=== PATIENT | female | born 1965 | race Caucasian/White ===

== ENCOUNTER 2024-08-06 09:29 | Emergency (ER) | payer OTHER ==
[~2024-08-06] VITALS: Ht 165.1 cm; Wt 98.0 kg
[~2024-08-06 09:29] MED LIST: ESCI10 PO; HYDACE5 PO; NAPR500 PO; OXYACE5T PO
[2024-08-06 10:23] LABS: BASOPHILS ABSOLUTE AUTO 0.06 K/mm3 (0.00-0.23); BASOPHILS PERCENT AUTO 1 % (0-2); EOSINOPHILS ABSOLUTE AUTO 0.21 K/mm3 (0.00-0.68); EOSINOPHILS PERCENT AUTO 2 % (0-6); Hematocrit 39.5 % (33.0-51.0); Hemoglobin 12.9 g/dL (11.5-16.0); IMMATURE GRAN ABSOLUTE AUTO 0.01 K/mm3 (0.00-0.10); IMMATURE GRAN PERCENT AUTO 0 % (0-1); LYMPHOCYTES ABSOLUTE AUTO 2.32 K/mm3 (0.84-5.20); LYMPHOCYTES PERCENT AUTO 26 % (21-46); MONOCYTES ABSOLUTE AUTO 0.56 K/mm3 (0.16-1.47); MONOCYTES PERCENT AUTO 6 % (4-13); Mean Corpuscular HGB 31.2 pg (26.0-34.0); Mean Corpuscular HGB Conc 32.7 g/dL (31.5-36.5); Mean Corpuscular Volume 95 fL (80-100); Mean Platelet Volume 9.8 fL (9.1-12.4); NEUTROPHILS ABSOLUTE AUTO 5.75 K/mm3 (1.96-9.15); NEUTROPHILS PERCENT AUTO 65 % (41-73); Platelet Count 359 K/mm3 (150-400); RDW Coefficient Variation 13.7 % (11.7-14.2); RDW Standard Deviation 48.7 fL (35.1-46.3); Red Blood Cell Count 4.14 M/mm3 (3.80-5.20); White Blood Cell Count 8.91 K/mm3 (4.00-11.30)
[2024-08-06 10:36] LABS: Albumin, Blood 3.1 g/dL (3.4-5.0); Albumin/Globulin Ratio 0.9 (0.8-1.8); Bilirubin, Total 0.3 mg/dL (0.1-1.0); Bun/Creatinine Ratio 22.7 (12.0-20.0); Calcium, Blood 8.4 mg/dL (8.5-10.1); Creatinine, Blood 0.7 mg/dL (0.40-1.00); Globulin, Blood 3.4 g/dL (2.2-4.0); Total Protein, Blood 6.5 g/dL (6.4-8.2)
== END 2024-08-06 12:56 | disposition home or self-care (01) ==
LOC: ER 09:29
PROVIDERS: Physician Assistant
DX: R07.2 Precordial pain (principal); Z88.5 Allergy status to narcotic agent
CPT/HCPCS: 71046; 80053; 84484; 85025; 93005; 93010; 99285-25

== ENCOUNTER 2024-09-15 08:06 | Day surgery (SDC) | payer OTHER ==
[~2024-09-15] VITALS: Ht 167.6 cm; Wt 101.0 kg
[2024-09-15] VITALS (9 sets, daily range): BP systolic 120–141; BP diastolic 69–88
[~2024-09-15 08:06] MED LIST changes: +Aspir 8181 MG PO; +BUPR150ER PO; +Lipitor20 MG PO; +NARATRIPTAN HC2.5 MG PO; +NITR.4SL SL; +TRAZ50 PO; +ZEBUTAL 50-3251 EAC1
[2024-09-15] MEDS ORDERED: METO25ER PO (08:30)
[2024-09-15] MEDS ORDERED: NS 250 ML IV ONE (08:38)
[2024-09-15] MEDS ORDERED: Verapamil HCL 2.5 MG/ML 2ML Injection ONE (08:38)
[2024-09-15] MEDS ORDERED: Heparin Sodium 1000 Units/ML 10ML MDV ONE (08:38)
[2024-09-15] MEDS ORDERED: NS 1,000 ML IV ONE ×2 (08:38→08:55)
[2024-09-15] MEDS ORDERED: Nitroglycerin 2 MG/20 ML BTL ONE (08:39)
[2024-09-15] MEDS ORDERED: FentaNYL Citrate 50 MCG/ML 2 ML Injection ONE (09:42)
[2024-09-15] MEDS ORDERED: Midazolam HCl 1MG / ML 2ML Vial ONE ×2 (09:42→10:00)
[2024-09-15] MEDS ORDERED: DILT120 PO (11:23)
--- NOTE | 2024-09-15 11:53 | NUR ---
PT TR BAND FULLY DEFLATED. NO BLEEDING NOTED. VSS.NADN. PRESCRIPTION CALLED TO [facility] FOR CARDIZEM CD 120MG PO DAILY # 30 WITH 6 REFILLS.
--- NOTE | 2024-09-15 12:08 | NUR ---
PT VERBALIZES UNSERSTANDING WRITTEN AND VERBAL INSTRUCTIONS. TR BAND REMOVED. NO BLEEDING OR HEMATOMA NOTED. CLOTH DOT APPLIED WITH SPLINT. PT TO RESTROOM ANBD BACK WITHOUT DIFF. PT DRESSES SELF WITHOUT DIFF. PT DC TO HOME VIA W/C
== END 2024-09-15 13:12 | disposition home or self-care (01) ==
LOC: MHTC 08:06
DX: I20.9 Angina pectoris, unspecified (principal); R94.39 Abnormal result of other cardiovascular function study; R00.2 Palpitations; R06.02 Shortness of breath; F32.9 Major depressive disorder, single episode, unspecified; G43.909 Migraine, unspecified, not intractable, without status migrainosus; Z79.899 Other long term (current) drug therapy; Z88.5 Allergy status to narcotic agent; Z91.010 Allergy to peanuts
CPT/HCPCS: 76937; 93454; 99152; C1769; C1887; C1894; J1644; J2250; J3010; J7030; J7050; Q9967

== ENCOUNTER 2024-12-11 09:43 | Emergency (ER) | payer OTHER ==
[~2024-12-11] VITALS: Ht 170.2 cm; Wt 95.2 kg
[~2024-12-11 09:43] MED LIST changes: +DILT120 PO; +METO25ER PO
[2024-12-11] MEDS ORDERED: Ketorolac Tromethamine 15mg Vial IM ONE (10:50)
[2024-12-11] MEDS ORDERED: OxyCODONE 5 mg/Acetamin 325 mg TABLET PO ONE (10:50)
[2024-12-11] MEDS ORDERED: Percocet 5-3251 EACH PO (13:35)
== END 2024-12-11 14:14 | disposition home or self-care (01) ==
LOC: ER 09:43
DX: M25.561 Pain in right knee (principal); G43.909 Migraine, unspecified, not intractable, without status migrainosus; Z79.82 Long term (current) use of aspirin; Z88.5 Allergy status to narcotic agent
CPT/HCPCS: 73562-RT; 96372; 99283-25; A9270; J1885

== ENCOUNTER 2025-08-22 03:18 | Inpatient (IN) | payer OTHER ==
[~2025-08-22] VITALS: Ht 167.6 cm; Wt 101.7 kg
[~2025-08-22 03:18] MED LIST changes: +Percocet 5-3251 EACH PO
[2025-08-22] MEDS ORDERED: BUTALB-ACETAMI1 EAC5 PO ×2 (03:41→13:01)
[2025-08-22] MEDS ORDERED: METOPROLOL SUCC25 MG PO (03:42)
[2025-08-22] MEDS ORDERED: Ondansetron HCl 2 MG / ML 2ML Vial IV PRN ×2 (03:45→08:25)
[2025-08-22 03:53] LABS: BASOPHILS ABSOLUTE AUTO 0.08 K/mm3 (0.00-0.23); BASOPHILS PERCENT AUTO 1 % (0-2); EOSINOPHILS ABSOLUTE AUTO 0.20 K/mm3 (0.00-0.68); EOSINOPHILS PERCENT AUTO 1 % (0-6); Hematocrit 38.3 % (33.0-51.0); Hemoglobin 12.4 g/dL (11.5-16.0); IMMATURE GRAN ABSOLUTE AUTO 0.06 K/mm3 (0.00-0.10); IMMATURE GRAN PERCENT AUTO 0 % (0-1); LYMPHOCYTES ABSOLUTE AUTO 1.80 K/mm3 (0.84-5.20); LYMPHOCYTES PERCENT AUTO 12 % (21-46); MONOCYTES ABSOLUTE AUTO 0.70 K/mm3 (0.16-1.47); MONOCYTES PERCENT AUTO 5 % (4-13); Mean Corpuscular HGB Conc 32.4 g/dL (31.5-36.5); Mean Corpuscular Volume 98 fL (80-100); NEUTROPHILS ABSOLUTE AUTO 12.13 K/mm3 (1.96-9.15); NEUTROPHILS PERCENT AUTO 81 % (41-73); NRBC ABSOLUTE 0.00 K/mm3 (0.00-0.02); NRBC Auto 0.0 /100 WBC (0.0-0.2); Platelet Count 332 K/mm3 (150-400); RDW Coefficient Variation 13.7 % (11.7-14.2); RDW Standard Deviation 49.3 fL (35.1-46.3)
[2025-08-22 04:12] LABS: Alanine Aminotransfer (ALT/SGP 35.0 U/L (12-78); Albumin, Blood 3.3 g/dL (3.4-5.0); Albumin/Globulin Ratio 1.0 (0.8-1.8); Anion Gap 9.0 mmol/L (3-11); Aspartate Aminotrans (AST/SGOT 37.0 U/L (12-37); Bilirubin, Total 0.5 mg/dL (0.1-1.0); Blood Urea Nitrogen 14.0 mg/dL (8-24); CO2, Blood 25.0 mmol/L (21-32); Calcium, Blood 8.7 mg/dL (8.5-10.1); Chloride, Blood 110.0 mmol/L (98-108); Creatinine, Blood 0.7 mg/dL (0.40-1.00); Globulin, Blood 3.3 g/dL (2.2-4.0); Glucose, Blood 117.0 mg/dL (70-99); Potassium, Blood 3.6 mmol/L (3.5-5.5); Sodium, Blood 140.0 mmol/L (136-145); Total Protein, Blood 6.6 g/dL (6.4-8.2)
[2025-08-22] MEDS ORDERED: Metoclopramide HCl 5MG / ML 2ML Vial IV ONE (04:20)
[2025-08-22] MEDS ORDERED: FentaNYL Citrate 50 MCG/ML 2 ML Injection IV ONE (04:20)
[2025-08-22 05:21] LABS: Source, Urine Clean Catch
[2025-08-22 05:27] LABS: Bilirubin, Urine Neg (Neg); Color, Urine Yellow (P-Yellow); Glucose Qualitative, Urine Neg (Neg); Ketones, Urine Neg (Neg); Leukocyte Esterase, Urine 2+ (Neg); Protein, Urine 1+ (Neg); Specific Gravity, Urine 1.025 (1.003-1.022); Urobilinogen, Urine NORM (Normal)
[2025-08-22 05:49] LABS: Red Blood Cells, Urine 0-2 /hpf (0-2)
[2025-08-22] MEDS ORDERED: ONDA4ODT MM (06:20)
[2025-08-22] MEDS ORDERED: Morphine Sulfate 4 MG/1 ML Injection IV ONE (06:20)
[2025-08-22] MEDS ORDERED: OXYACE7.5T PO (06:20)
[2025-08-22] MEDS ORDERED: Ondansetron HCl 2 MG / ML 2ML Vial IV ONE (07:15)
[2025-08-22] MEDS ORDERED: HYDROmorphone HCl/Pf 1MG SYR IV PRN ×2 (07:40→08:30)
[2025-08-22] MEDS ORDERED: FLU VACC TS2025-26(6MOS UP)/PF 45 MCG/0.5 ML SYRINGE IM SCH (08:25)
[2025-08-22 08:38] LABS: CHOL/HDL RATIO 1.7; Cholesterol 137 mg/dL (50-200); HDL Cholesterol 79 mg/dL (>39); LDL/HDL RATIO 0.5; Low Density Lipoprotein Chol 39 mg/dL (0-110); Triglycerides 93 mg/dL (30-160); Very Low Density Lipoprot Chol 18 mg/dL (6-32)
[2025-08-22] MEDS ORDERED: Enoxaparin 40 MG/0.4 ML SYR SC SCH (09:00)
[2025-08-22 11:06] VITALS: BP 118/67
--- NOTE | 2025-08-22 11:38 | NUR ---
The patient is lying in bed and alert. Her spouse, Beau is bedside. She tells me about the events that led to her admission to the hospital and the pain levels which are finally managed (several pain medications had been tried up to this point). Beau explains about the two bucks that he and their dtr shot yesterday, how they lean on their nicole for strength and peace and about the many irons that his has in the fire. I provided therapeutic listening and prayer. They both responded well and showed signs of reduced stress.
[2025-08-22] MEDS ORDERED: CefTRIAXone Sodium 1,000 MG in NS 100 ML IV SCH (13:00)
[2025-08-22] MEDS ORDERED: NS 250 ML IV PRN (13:45)
[2025-08-22 16:11] VITALS: BP 122/59
--- NOTE | 2025-08-22 16:14 | NUR ---
ADMIT NOTE PT A&OX4. PT ADMITTED DUE TO PANCREATITIS. PT ON TELE. PT HAS LR RUNNING AT 100ML/HR. PT REPORTS LOOSE STOOL YESTERDAY. REPORTED LOOSE STOOL TO DR. CARVAJAL. PT ARRIVED ON FLOOR AT 1040. PT SBA IN ROOM DUE TO LINES. PT STEADY ON FEET. PT REPORTS NO CHEST PAIN/SOB. PT REPORTS ABD PAIN, PT USES HEATING PAD FOR RELIEF AND MEDICATED PER EMAR. NIX CONSULTED, CALLED BY PROVIDER. PT ORIENTED TO UNIT/FALL PRECAUTIONS, CALL LIGHT. HOME MED IN DRAWER. CLARIFIED WITH DR. CARVAJAL IF SHE WANTS PT TO BE Q6 BLOOD SUGARS, WEI VALDEZ REPORTED "NOT NEEDED." REPORTED URINALYSIS TO DR. CARVAJAL, DR. CARVAJAL ORDERED ANTIBIOTIC. 2ND RN SKIN CHECK VERIFIED WITH LIZZETTE CHILDRESS. MED REC RECONSILED, REPORTED TO DOC. PT REPORTS TAKING MED FOR MIGRAINES, REPORTED TO DR. CARVAJAL ONSET OF HEADACHE. VSS. PT IN BED, BED IN LOWEST POSITION, CALL LIGHT IN REACH.
--- NOTE | 2025-08-22 19:34 | NUR ---
SHIFT SUMMARY PT A&OX4. PT ADMITTED DUE TO PANCREATITIS. PT REPORTS NO CHEST PAIN/SOB. DR. NELSON ROUNDED ON PT. PER NIX "PT WILL HAVE EGD TOMORROW, CLEAR LIQUIDS TILL 0700 ON 08/23." PT REPORTS ABD PAIN AND BLOUNT. PT HAS HX OF MIGRAINES. PT REPORTS NAUSEA. ZOFRAN GIVEN PER ORDER. PT ON TELE, NO TELE REPORTS. PT SBA DUE TO LINES. NO ACUTE CHANGES DURING SHIFT. (SEE ADMIT NOTE FOR MORE DETAILS) PT IN BED, BED IN LOWEST POSITION, CALL LIGHT IN REACH. VSS.
[2025-08-22 19:39] VITALS: BP 115/63
[2025-08-22 23:19] VITALS: BP 128/67
[2025-08-23] VITALS (19 sets, daily range): BP systolic 106–148; BP diastolic 48–96
--- NOTE | 2025-08-23 07:53 | NUR ---
Shift Summary AOx4. Pleasant. Cooperative. Ad partha. Medicated x 1 with one tab of fioricet for migraine, good effect provided. Patient slept through the night. LUQ slightly tender, but much improved. NPO since midnight except clear liquids which was cut off at 0700 this morning. Plan for EGD today. LR @ 100 continuous.
[2025-08-23 09:14] LABS: BASOPHILS ABSOLUTE AUTO 0.07 K/mm3 (0.00-0.23); BASOPHILS PERCENT AUTO 1 % (0-2); EOSINOPHILS ABSOLUTE AUTO 0.23 K/mm3 (0.00-0.68); EOSINOPHILS PERCENT AUTO 4 % (0-6); Hematocrit 33.0 % (33.0-51.0); Hemoglobin 10.9 g/dL (11.5-16.0); IMMATURE GRAN ABSOLUTE AUTO 0.01 K/mm3 (0.00-0.10); IMMATURE GRAN PERCENT AUTO 0 % (0-1); LYMPHOCYTES ABSOLUTE AUTO 1.80 K/mm3 (0.84-5.20); LYMPHOCYTES PERCENT AUTO 27 % (21-46); MONOCYTES ABSOLUTE AUTO 0.48 K/mm3 (0.16-1.47); MONOCYTES PERCENT AUTO 7 % (4-13); Mean Corpuscular HGB Conc 33.0 g/dL (31.5-36.5); Mean Corpuscular Volume 96 fL (80-100); NEUTROPHILS ABSOLUTE AUTO 3.99 K/mm3 (1.96-9.15); NEUTROPHILS PERCENT AUTO 61 % (41-73); NRBC ABSOLUTE 0.00 K/mm3 (0.00-0.02); NRBC Auto 0.0 /100 WBC (0.0-0.2); Platelet Count 279 K/mm3 (150-400); RDW Coefficient Variation 13.9 % (11.7-14.2); RDW Standard Deviation 48.8 fL (35.1-46.3)
[2025-08-23 09:45] LABS: Alanine Aminotransfer (ALT/SGP 52.0 U/L (12-78); Albumin, Blood 2.8 g/dL (3.4-5.0); Albumin/Globulin Ratio 0.9 (0.8-1.8); Anion Gap 7.0 mmol/L (3-11); Aspartate Aminotrans (AST/SGOT 40.0 U/L (12-37); Bilirubin, Total 0.4 mg/dL (0.1-1.0); Blood Urea Nitrogen 8.0 mg/dL (8-24); CO2, Blood 28.0 mmol/L (21-32); Calcium, Blood 8.4 mg/dL (8.5-10.1); Chloride, Blood 108.0 mmol/L (98-108); Creatinine, Blood 0.7 mg/dL (0.40-1.00); Globulin, Blood 3.0 g/dL (2.2-4.0); Glucose, Blood 91.0 mg/dL (70-99); Potassium, Blood 3.4 mmol/L (3.5-5.5); Sodium, Blood 140.0 mmol/L (136-145); Total Protein, Blood 5.8 g/dL (6.4-8.2)
[2025-08-23] MEDS ORDERED: Potassium Chl 20MEQ/Water100ML 100 ML IV STA (10:25)
--- NOTE | 2025-08-23 11:05 | NUR ---
NOTE PT POTASSIUM 3.4. ORDERED IV POTASSIUM. PT HAS LR CONT RUNNING AT 100ML/HR. PHARMACY ADJUSTED RATE FOR POTASSIUM AND REPORTED THEY ARE COMPATIBLE. PT NPO, DAY SURG REPORTED PT GOING FOR EGD AT 1230.
--- NOTE | 2025-08-23 11:30 | NUR ---
NOTE PT REPORTS LITTLE CHEST PAIN, MAY BE DUE TO STIFF NECK AND BLOUNT. THIS RN REPORTED TO DR. CARVAJAL, DR. CARVAJAL REPORTED "MAY BE DUE TO ACID REFLUX RELATED TO PANCREATITIS." NO NEW ORDERS. PT MEDICATED FOR NAUSEA AND BLOUNT.
--- NOTE | 2025-08-23 11:35 | NUR ---
The patient is sitting up in bed and alert. She tells me about her upcoming procedure and her gratitude for having her pain managed. She then talks about her spiritual journey, her growing nicole and her sources of gaining Biblical knowledge and support. I reinforced helpful attitudes and practices, normalized her experience and provided therapeutic listening and prayer. The patient responded well and showed signs of a elevated mood. I will continue to remain available to the patient and family.
--- NOTE | 2025-08-23 12:10 | NUR ---
History, Chart, Medications and Allergies reviewed before start of procedure. Lungs clear T/O to Auscultation. Patient confirms NPO status and agrees with scheduled surgery. Pre-Op teaching done. Pt verbalizes understanding. Patient States Post-Procedure ride home has been arranged.
--- NOTE | 2025-08-23 12:45 | NUR ---
08/23/25 1245 Joi Castillo CONFIRMED AND REVIEWED H&P, MEDCICATIONS, ALLERGIES, MEDICAL HISTORY, RESPIRATORY HISTORY, VITAL SIGNS, 3-LEAD EKG, CONSENTS, AND PHYSICIAN ORDERS. PATIENT CONFIRMS NPO STATUS AND AGREES WITH SCHEDULED PROCEDURE. MONITOR INTACT WITH CONTINUOUS PULSE OXIMETRY, CAPNOGRAPHY, 3-LEAD EKG, INTERMITTENT BP. SUPPLEMENTAL O2 TO BE TITRATED THROUGHOUT PROCEDURE TO MAINTAIN O2 SATURATION ABOVE 90%. PATIENT DETERMINED TO BE ASA APPROPRIATE FOR PROPOFOL SEDATION PRIOR TO START OF PROCEDURE BY DR. NELSON. MALLAMPATI CLASS 1 AIRWAY: COMPLETE VISULATIZATION OF THE SOFT PALATE. PATIENT REMOVED FROM CENTRAL TELEMETRY MONITORING, WILL PLACE BACK ON WHEN TRANSFERING BACK TO MEDICAL FLOOR.
--- NOTE | 2025-08-23 13:22 | NUR ---
NOTE PT BACK IN ROOM. ALERT. POST OP VITALS STARTED. PT ON REGULAR DIET, ANTIBIOTIC STARTED. PT IN BED, BED IN LOWEST POSITION, CALL LIGHT IN REACH. PT REPORTS NO CHEST PAIN OR PAIN. NO SOB.
--- NOTE | 2025-08-23 18:36 | NUR ---
SHIFT SUMMARY PT A&OX4. PT ADMITTED DUE TO PANCREATITIS. PT REPORTS NO CHEST PAIN/SOB/GEN PAIN. PT REPORTS BLOUNT UNDER CONTROL. PT HAD EDG COMPLETE. PT HAD POTASSIUM REPLACEMENT THROUGH IV TODAY. DR. NELSON REPORTED "LETS SEE HOW PT TOLERATES REG DIET." DR. NELSON PUT IN ORDERS FOR NPO EXCEPT MEDS AND SIPS OF WATER. VSS. PT ON TELE, NO TELE REPORTS. PT REPORTS "ATE FRUIT BUT TUMMY WAS GRUMBLY." PT REPORTS NO EMESIS, NAUSEA OK. CONT LR D/C. PT SBA DUE TO LINES. PT IN BED, BED IN LOWEST POSITION, CALL LIGHT IN REACH.
[2025-08-24] VITALS (17 sets, daily range): BP systolic 100–137; BP diastolic 57–90
--- NOTE | 2025-08-24 03:19 | NUR ---
SHIFT SUMMARY PATIENT HAS BEEN ALERT AND ORIENTED X4, COOPERTIVE AND PLESANT. PATIENT AMBULATED WITH FAMILY MEMBER AT THE START OF THE SHIFT. AT START OF SHIFT PATIENT HAD ATE CRACKERS, A FEW BITES OF PRADIP JIMENES, HAD CRANBERRY JUICE AND TOLERATED IT WELL. MADE NPO AT MIDNIGHT. HAS BEEN INDEPENDENT IN THE ROOM, NO POINTS OF DISTRESS, CALL LIGHT WITHIN REACH, BED RAILS UP X2, BED AT LOWEST POSITION,
[2025-08-24 04:55] LABS: BASOPHILS ABSOLUTE AUTO 0.08 K/mm3 (0.00-0.23); BASOPHILS PERCENT AUTO 1 % (0-2); EOSINOPHILS ABSOLUTE AUTO 0.29 K/mm3 (0.00-0.68); EOSINOPHILS PERCENT AUTO 3 % (0-6); Hematocrit 32.0 % (33.0-51.0); Hemoglobin 10.7 g/dL (11.5-16.0); IMMATURE GRAN ABSOLUTE AUTO 0.02 K/mm3 (0.00-0.10); IMMATURE GRAN PERCENT AUTO 0 % (0-1); LYMPHOCYTES ABSOLUTE AUTO 2.80 K/mm3 (0.84-5.20); LYMPHOCYTES PERCENT AUTO 33 % (21-46); MONOCYTES ABSOLUTE AUTO 0.64 K/mm3 (0.16-1.47); MONOCYTES PERCENT AUTO 8 % (4-13); Mean Corpuscular HGB Conc 33.4 g/dL (31.5-36.5); Mean Corpuscular Volume 96 fL (80-100); NEUTROPHILS ABSOLUTE AUTO 4.58 K/mm3 (1.96-9.15); NEUTROPHILS PERCENT AUTO 55 % (41-73); NRBC ABSOLUTE 0.00 K/mm3 (0.00-0.02); NRBC Auto 0.0 /100 WBC (0.0-0.2); Platelet Count 275 K/mm3 (150-400); RDW Coefficient Variation 14.0 % (11.7-14.2); RDW Standard Deviation 49.1 fL (35.1-46.3)
[2025-08-24 05:23] LABS: Anion Gap 7.0 mmol/L (3-11); Blood Urea Nitrogen 6.0 mg/dL (8-24); CO2, Blood 28.0 mmol/L (21-32); Calcium, Blood 8.3 mg/dL (8.5-10.1); Chloride, Blood 111.0 mmol/L (98-108); Creatinine, Blood 0.61 mg/dL (0.40-1.00); Glucose, Blood 92.0 mg/dL (70-99); Potassium, Blood 3.5 mmol/L (3.5-5.5); Sodium, Blood 142.0 mmol/L (136-145)
[2025-08-24] MEDS ORDERED: Rocuronium Bromide 10 MG/ML 5ML Injection IV ONE (11:09)
[2025-08-24] MEDS ORDERED: Midazolam HCl 1MG / ML 2ML Vial ONE (11:10)
[2025-08-24] MEDS ORDERED: FentaNYL Citrate 50 MCG/ML 2 ML Injection ONE (11:10)
[2025-08-24] MEDS ORDERED: FentaNYL Citrate 50 MCG/ML 2 ML Injection IV PRN ×2 (11:20→11:25)
[2025-08-24] MEDS ORDERED: HYDROmorphone HCl/Pf 1MG SYR IV PRN ×2 (11:25)
[2025-08-24] MEDS ORDERED: Labetalol HCL 5 MG/ML 4ML Injection (Single Dose) IV PRN (11:25)
[2025-08-24] MEDS ORDERED: Ondansetron HCl 2 MG / ML 2ML Vial IV PRN (11:25)
[2025-08-24] MEDS ORDERED: Bupivacaine 0.5% HCl 5 MG/ML 30MLVIAL ONE (11:41)
[2025-08-24] MEDS ORDERED: CefTRIAXone 1000 MG Vial ONE (11:49)
--- NOTE | 2025-08-24 12:00 | NUR ---
PT LEFT FLOOR FOR HER PROCEDURE- PT WENT FOR EXPLORATORY LAPAROTOMY. THEY PULLED A DOSE OF ROCEPHIN AND WILL ADMINISTER DURRING SURGERY, SHE WILL NOT NEED THE 1300 DOSE. DAY SURGERY BROUGHT HER PHONE BACK TO THE ROOM. TELE NOTIFIED THE PT IS IN DAY SURGERY.
[2025-08-24] MEDS ORDERED: Ondansetron HCl 2 MG / ML 2ML Vial ONE ×2 (12:07→13:45)
[2025-08-24] MEDS ORDERED: Dexamethasone Sod Phos 10 MG/ML 1ML VIAL ONE (12:07)
[2025-08-24] MEDS ORDERED: Ketorolac Tromethamine 30mg Vial ONE (12:08)
[2025-08-24] MEDS ORDERED: Sugammadex Sodium 200 MG/2ML SDV (100 MG/ML) ONE (12:31)
[2025-08-24] MEDS ORDERED: Metoclopramide HCl 5MG / ML 2ML Vial IV PRN (14:45)
--- NOTE | 2025-08-24 16:16 | NUR ---
SHIFT SUMMARY- PT WENT FOR EXPLORATORY LAPAROTOMY WITH DR NELSON. PER DR NELSON THE PT SHOULD STAY AND BE SURE SHE IS ABLE TO TOLLERATE PO NUTRITION, THEN SHE SHOULD FOLLOW UP POST HOSPITAL STAY WITH A BARIACTRIC SURGEON. PT HAD SOME BRADYCARDIA UPON RETURNING FROM SURGERY EKG COMPLETED. PT MEDICATED WITH IV DILAUDID FOR PAIN AND THAT SEEMED TO HELP HER PAIN AND HER HR INCREASED A BIT. ONCE PT WAS MORE AWAKE SHE TOLD THIS RN WHEN SHE IS IN PAIN HER HR GETS LOWER. PT TAKING IN PO JELLO, SHE SAYS SE IS READY FOR THE PUDDING, ASKED HER TO WAIT A FEW MINUTES TO BE SURE THE JELLO DOES NOT MAKE HER NAUSEOUS. WILL ADVANCE DIET TOLLERATED. PT IN BED, CALL LIGHT IN REACH, NO CURRENT S&S OF DISTRESS NOTED. WILL CTM AND PASS ON IN REPORT TO NIGHT RN. PLAN TO DC HOME TOMORROW IF ALL GOES PLANNED.
--- NOTE | 2025-08-24 17:00 | NUR ---
Several spiritual care visits this day. Patient has been tearful and anxious and appreciates prayer and conversations centered around her nicole (which was gladly supplied. She responded well and showed signs of reduced stress and increased peace.
[2025-08-25 03:34] VITALS: BP 94/56
[2025-08-25 05:15] LABS: BASOPHILS ABSOLUTE AUTO 0.04 K/mm3 (0.00-0.23); BASOPHILS PERCENT AUTO 0 % (0-2); EOSINOPHILS ABSOLUTE AUTO 0.13 K/mm3 (0.00-0.68); EOSINOPHILS PERCENT AUTO 1 % (0-6); Hematocrit 32.0 % (33.0-51.0); Hemoglobin 10.4 g/dL (11.5-16.0); IMMATURE GRAN ABSOLUTE AUTO 0.01 K/mm3 (0.00-0.10); IMMATURE GRAN PERCENT AUTO 0 % (0-1); LYMPHOCYTES ABSOLUTE AUTO 2.83 K/mm3 (0.84-5.20); LYMPHOCYTES PERCENT AUTO 28 % (21-46); MONOCYTES ABSOLUTE AUTO 0.63 K/mm3 (0.16-1.47); MONOCYTES PERCENT AUTO 6 % (4-13); Mean Corpuscular HGB Conc 32.5 g/dL (31.5-36.5); Mean Corpuscular Volume 96 fL (80-100); NEUTROPHILS ABSOLUTE AUTO 6.64 K/mm3 (1.96-9.15); NEUTROPHILS PERCENT AUTO 65 % (41-73); NRBC ABSOLUTE 0.00 K/mm3 (0.00-0.02); NRBC Auto 0.0 /100 WBC (0.0-0.2); Platelet Count 281 K/mm3 (150-400); RDW Coefficient Variation 13.7 % (11.7-14.2); RDW Standard Deviation 48.9 fL (35.1-46.3)
[2025-08-25 05:46] LABS: Anion Gap 6.0 mmol/L (3-11); Blood Urea Nitrogen 9.0 mg/dL (8-24); CO2, Blood 28.0 mmol/L (21-32); Calcium, Blood 8.2 mg/dL (8.5-10.1); Chloride, Blood 109.0 mmol/L (98-108); Creatinine, Blood 0.63 mg/dL (0.40-1.00); Glucose, Blood 104.0 mg/dL (70-99); Potassium, Blood 3.4 mmol/L (3.5-5.5); Sodium, Blood 140.0 mmol/L (136-145)
--- NOTE | 2025-08-25 06:40 | NUR ---
SHIFT SUMMARY; PATIENT ABLE TO VOID, HAS EPISODES OF PAIN WITH SOME NAUSEA, NO EMESIS. NEEDS TO TRANSITION TO ORAL PAIN MEDS THIS MORNING. ABD X 4 CD&I. IV WENT BAD RESTARTED BY CHARGE TELE SR
[2025-08-25 07:26] VITALS: BP 130/76
--- NOTE | 2025-08-25 10:17 | NUR ---
Patient is lying in bed and alert. Her friend Jan is bedside. The patient tells me about the plan to DC home today and that she is feeling much better. I celebrate with her about the improvement and bless her for her recovery and safe trip home.
[2025-08-25] MEDS ORDERED: HYDROcodone 7.5-APAP 325 TAB PO PRN (11:00)
[2025-08-25 11:15] VITALS: BP 121/76
[2025-08-25] MEDS ORDERED: B-1100 M1 PO (11:40)
[2025-08-25] MEDS ORDERED: Norco 7.5-3251 EACH PO (11:40)
[2025-08-25] MEDS ORDERED: MERIBIN5 MG PO (11:40)
--- NOTE | 2025-08-25 15:50 | NUR ---
DISCHARGE NOTE- PT WAS GIVEN VERBAL AND WRITTEN DISCHARGE INSTRUCTIONS AND ACKNOWLEDGED UNDERSTANDING OF THEM. SHE WAS PROVIDED WITH HARD COPY SCRIPT FOR PAIN MEDICATION. PT IV AND TELE DC'D PRIOR TO DISCHARGE AND ESCORTED OUT VIA WC BY THE CATEGORY SPECIALIST. NO S&S OF DISTRESS NOTED AT THE TIME OF DISCHARGE.
== END 2025-08-25 12:30 | disposition home or self-care (01) | DRG 356 ==
LOC: ER 03:18 → MEDS 08:10
PROVIDERS: Emergency Medicine; Surgery; ADMIT Family Medicine
PROC: 3E03329 Introduction of Other Anti-infective into Peripheral Vein, Percutaneous Approach (ICD-10-PCS; 2025-08-22)
PROC: 0DJ08ZZ Inspection of Upper Intestinal Tract, Via Natural or Artificial Opening Endoscopic (ICD-10-PCS; 2025-08-23)
PROC: 0DQV4ZZ Repair Mesentery, Percutaneous Endoscopic Approach (ICD-10-PCS; principal; 2025-08-24 12:30)
DX: K40.90 Unilateral inguinal hernia, without obstruction or gangrene, not specified as recurrent (principal); K85.90 Acute pancreatitis without necrosis or infection, unspecified; F41.9 Anxiety disorder, unspecified; D64.9 Anemia, unspecified; I10 Essential (primary) hypertension; E87.6 Hypokalemia; K21.9 Gastro-esophageal reflux disease without esophagitis; E78.5 Hyperlipidemia, unspecified; M79.7 Fibromyalgia; Z98.84 Bariatric surgery status; Z90.49 Acquired absence of other specified parts of digestive tract; Z98.890 Other specified postprocedural states; Z88.5 Allergy status to narcotic agent; Z79.82 Long term (current) use of aspirin; Z79.899 Other long term (current) drug therapy; R00.1 Bradycardia, unspecified; Z87.81 Personal history of (healed) traumatic fracture
CPT/HCPCS: 36415; 71046; 74177; 80048; 80053; 80061; 80320; 81001; 83690; 84484; 85025; 87086; 93005; 93010; 96374; 96375; 96376; 99285-25; A9270; J0696; J1100; J1171; J1650; J1885; J2250; J2270; J2405; J2704; J2765; J3010; J3480; J7050; J7120; Q9967

== ENCOUNTER 2025-10-31 10:01 | Day surgery (SDC) | payer OTHER ==
[2025-10-31] VITALS (13 sets, daily range): BP systolic 108–125; BP diastolic 67–80
[~2025-10-31] VITALS: Ht 165.1 cm; Wt 100.0 kg
[~2025-10-31 10:01] MED LIST changes: +BUTALB-ACETAMI1 EAC5 PO; +MERIBIN5 MG PO; +METOPROLOL SUCC25 MG PO; +Norco 7.5-3251 EACH PO; +ONDA4ODT MM; +OXYACE7.5T PO; +VITAMIN B-1250 MG PO
[2025-10-31] MEDS ORDERED: Cipro500 MG PO (10:35)
--- NOTE | 2025-10-31 11:09 | NUR ---
Pre-Op teaching done. Pt verbalizes understanding. Ambulatory in Day Surgery. History, Chart, Medications and Allergies reviewed before start of procedure. Patient confirms NPO status and agrees with scheduled surgery. Patient States Post-Procedure ride home has been arranged.
--- NOTE | 2025-10-31 11:14 | NUR ---
RECENT UTI, PATIENT PRESCRIBED CIPRO BY DR. LARES. STATES SHE TOOK HER LAST DOSE THIS AM AND SYMPTOMS RESOLVED.
[2025-10-31] MEDS ORDERED: Bupivacaine 0.5% W/EPI 1:200000 SDV 30 ML Vial ONE (11:35)
[2025-10-31] MEDS ORDERED: FentaNYL Citrate 50 MCG/ML 2 ML Injection ONE ×3 (11:51→13:33)
[2025-10-31] MEDS ORDERED: Midazolam HCl 1MG / ML 2ML Vial ONE (11:51)
[2025-10-31] MEDS ORDERED: Labetalol HCL 5 MG/ML 4ML Injection (Single Dose) IV PRN (13:00)
[2025-10-31] MEDS ORDERED: Ondansetron HCl 2 MG / ML 2ML Vial IV PRN (13:00)
[2025-10-31] MEDS ORDERED: FentaNYL Citrate 50 MCG/ML 2 ML Injection IV PRN ×3 (13:00→13:05)
[2025-10-31] MEDS ORDERED: HYDROmorphone HCl/Pf 1MG SYR IV PRN (13:00)
[2025-10-31] MEDS ORDERED: Sugammadex Sodium 200 MG/2ML SDV (100 MG/ML) ONE (13:04)
[2025-10-31] MEDS ORDERED: ePHEDrine Sulfate 50 MG/ML 1ML Injection IV PRN (13:05)
[2025-10-31] MEDS ORDERED: Metoclopramide HCl 5MG / ML 2ML Vial IV PRN (13:05)
[2025-10-31] MEDS ORDERED: Ondansetron HCl 2 MG / ML 2ML Vial ONE (13:33)
[2025-10-31] MEDS ORDERED: HYDROcodone 5-APAP 325 TAB PO PRN (13:35)
[2025-10-31] MEDS ORDERED: Metoclopramide HCl 5MG / ML 2ML Vial ONE (13:46)
[2025-10-31] MEDS ORDERED: HYDROmorphone HCl/Pf 1MG SYR ONE (13:55)
--- NOTE | 2025-10-31 14:49 | NUR ---
PT REPORTS PAIN OF 5/10 IN HER ABD. NO NAUSEA REPORTED AND TOLERATING PO FLUIDS WELL. ORAL PAIN MEDS GIVEN. SEE EMAR. VSS. INCISIONS REMAIN CLEAN DRY AND INTACT. ALL BELONGINGS RETURED TO PT. PT'S DAUGHTER CALL FOR RIDE HOME. Discharged via wheelchair to private car for ride home WITH DAUGHTER. Discharge instructions reviewed with patient. Patient verbalizes understanding. Copy given to patient to take home.
== END 2025-10-31 23:00 | disposition home or self-care (01) ==
LOC: ORSCMMR 10:01 → ORD 10:30 → ORSCMMR 10:30
DX: K40.90 Unilateral inguinal hernia, without obstruction or gangrene, not specified as recurrent (principal); K41.90 Unilateral femoral hernia, without obstruction or gangrene, not specified as recurrent; K66.0 Peritoneal adhesions (postprocedural) (postinfection); E78.5 Hyperlipidemia, unspecified; Z79.899 Other long term (current) drug therapy; Z79.82 Long term (current) use of aspirin; M79.7 Fibromyalgia; Z98.84 Bariatric surgery status
CPT/HCPCS: A9270; C1781; J1171; J2250; J2405; J2704; J2765; J3010; J7120